=== PATIENT | female | born 2000 | race Caucasian/White ===

== ENCOUNTER 2022-08-06 04:43 | Emergency (ER) | payer OTHER, SELFPAY ==
[2022-08-06 04:46] VITALS: BP 147/99; PULSE 128; RESP 18; TEMP 37.4; O2SAT 96; BMI 56.5
[2022-08-06 04:54] VITALS: BMI 56.5
--- NOTE | 2022-08-06 04:54 | XR_ITS ---
PROCEDURE INFORMATION: Exam: XR Chest Exam date and time: 08/06/2022 4:49 AM Age: 21 years old Clinical indication: Cough; Additional info: Congestion TECHNIQUE: Imaging protocol: Radiologic exam of the chest. Views: 2 views. COMPARISON: No relevant prior studies available. FINDINGS: Lungs: Unremarkable. No consolidation. Pleural spaces: Unremarkable. No pleural effusion. No pneumothorax. Heart/Mediastinum: Unremarkable. No cardiomegaly. Bones/joints: Unremarkable. IMPRESSION: No acute findings.
--- NOTE | 2022-08-06 05:23 | [facility].EDURI ---
Discharge Plan Disposition Patient Disposition: Home, Self-Care Prescriptions Prescriptions: New oseltamivir [Tamiflu] 75 mg capsule 75 mg PO BID 5 Days Qty: 10 0RF No Action eerohyxdgetibda-dbihpgyzh-RO [Bromfed DM] 2-30-10 mg/5 mL syrup 10 ml PO Q4-6H PRN (Reason: cough) Qty: 118 1RF amoxicillin-pot clavulanate 875-125 mg tablet 1 tab PO BID 7 Days Qty: 14 0RF Referrals Follow up/Referrals: Augie Simon MD [Primary Care Provider] - See instructions Clinical Impressions Clinical Impression: Influenza Instructions Patient Instructions: DI for Influenza -- Adult Discharge ED Provider: Keenan Ross URI/Sore Throat HPI General Chief Complaint: Upper Respiratory Infection Stated Complaint: Body aches,cough,fever,SAAVEDRA,runny nose Time Seen by Provider: 08/06/22 05:23 Mode of Arrival: Ambulatory Source of Information: Patient and Medical Record Limitations: No Limitations Description of Symptoms (Recalled from ER Triage Doc. by RN): pt c/o cough congestion runny nose body aches since friday with no help from otc medications the pt stated yesterday she had a hard time breathing today is better just hurts from coughing History of Present Illness HPI Narrative: uri sx with cough Complaint: cough Onset (ago): day(s) Severity: moderate Associated symptoms: denies other symptoms Related Data Previous Rx's Medication Instructions Recorded amoxicillin 875 mg-potassium 1 tab PO BID 7 days #14 tabs 06/24/22 clavulanate 125 mg tablet lrqbiyxkcdlgxyy-wqaglutffoqnkhg-QE 10 ml PO Q4-6H PRN cough #118 mL 06/24/22 2 mg-30 mg-10 mg/5 mL oral syrup (Bromfed DM) oseltamivir 75 mg capsule (Tamiflu) 75 mg PO BID 5 days #10 caps 08/06/22 Allergies Allergy/AdvReac Type Severity Reaction Status Date / Time No Known Allergies Allergy Verified 06/24/22 09:34 [facility] Social History (Updated 06/24/22 @ 09:35 by Crista Mcknight LPN) Smoking Status: Never smoker alcohol intake: never substance use type: denies use current occupational status: employed Travel in the last 8 weeks: Inside the [place] household members: family housing: house ROS Obtained: Yes All systems reviewed & no additional complaints except as documented Physical Exam General General appearance: alert Head Head exam: normocephalic Eye Eye exam: Present PERRL and EOMI ENT ENT exam: Present normal oropharynx and mucous membranes moist Neck Neck exam: Present trachea midline Respiratory Respiratory exam: Absent respiratory distress Cardiovascular Cardiovascular exam: Present regular rate Abdominal Exam Abdominal exam: Present soft Extremities Exam Extremities exam: Present full ROM Neurological Exam Neurological exam: Present alert and CN II-XII intact Skin Skin exam: Absent rash Medical Decision Making Medical Records Medical records reviewed: Yes I reviewed the patient's medical records. Ac Inquiry Pt receiving controlled substance: No Vital Signs: 08/06/22 04:46 Temperature 99.3 F Temperature Source Oral Pulse Rate [Left] 128 H Respiratory Rate 18 Blood Pressure [Right Arm] 147/99 H Blood Pressure Mean [Right Arm] 115 02 Sat by Pulse Oximetry 96 Oxygen Delivery Method Room Air Lab Data Lab results reviewed: Yes I reviewed the patient's lab results. Lab Results 08/06/22 05:00: SARS-CoV-2 (PCR) Not detected, Influenza A Untype (PCR) Detected A, Influenza Type B (PCR) Not detected Orders (Tests/Meds): ORDERS Category Date Time Status Chest XR 2 view (NOT portable) [XR chest 2V] Stat Exams 08/06/22 04:54 Taken Rapid PCR Covid and Flu A/B Stat Lab 08/06/22 05:00 Completed Radiology Data #1: Image(s): Chest Image Reviewed: Yes I reviewed the patient's radiology image Preliminary Findings: Normal/NAD Medical Decision Narrative: has flu and stable exam Critical Care Time Critical Care Time Critical Care Time: No Att
[2022-08-06 05:55] LABS: Coronavirus 19, PCR Not Detected (NotDetected); Influenza B, PCR Not Detected (NotDetected)
[2022-08-06 06:17] LABS: Influenza A, PCR Detected (NotDetected)
[2022-08-06 06:27] VITALS: BP 142/74; PULSE 110; RESP 18; TEMP 37.4; O2SAT 97
== END 2022-08-06 06:29 | disposition home or self-care (01) ==
PROVIDERS: Emergency Provider Emergency Medicine; PCP Family Medicine
DX: J10.1 Influenza due to other identified influenza virus with other respiratory manifestations (principal); R50.9 Fever, unspecified; M79.10 Myalgia, unspecified site; R51.9 Headache, unspecified
CPT/HCPCS: 71046; 99283; C9803; U0003; U0005